=== PATIENT | female | born 1980 | race Hispanic/Latino ===

== ENCOUNTER 2017-05-20 17:59 | Emergency (ER) | payer OTHER ==
[2017-05-20 18:23] VITALS: RESP 16; TEMP 98.6; O2SAT 100
[2017-05-20] MEDS ORDERED: Magnesium Sulfate 2 gm/50 ml 2 GM/50 ML BAG IV STA (20:21)
[2017-05-20] MEDS ORDERED: Magnesium Sulfate 2 gm/50 ml 2 GM/50 ML BAG ONE (20:30)
[2017-05-20 20:33] LABS: BASO # 0.1 K/uL (0.0-0.2); BASO % 0.6 % (0.0-2.0); HEMOGLOBIN 12.9 g/dL (12.0-16.0); LYMPH # 0.8 K/uL (1.0-4.3); LYMPH % 8.2 % (20.0-40.0); MEAN CELL VOLUME 79.6 fl (81.0-99.0); MEAN CORPUSCULAR HEMOGLOBIN 26.2 pg (27.0-31.0); MEAN CORPUSCULAR HGB CONC 32.9 g/dL (33.0-37.0); MEAN PLATELET VOLUME 9.2 fl (7.2-11.7); MONO # 0.3 K/uL (0.0-0.8); MONO % 2.7 % (0.0-10.0); NEUT # 8.4 K/uL (1.8-7.0); NEUT % 88.5 % (50.0-75.0); PLATELET COUNT 263 K/uL (130-400); RBC 4.92 Mil/uL (3.80-5.20); RED CELL DISTRIBUTION WIDTH 14.2 % (11.5-14.5); WHITE BLOOD COUNT 9.5 K/uL (4.8-10.8)
[2017-05-20 20:44] LABS: ALB/GLOB RATIO 1.2 (1.0-2.1); ALBUMIN 4.8 g/dL (3.5-5.0); ALT/SGPT 30 U/L (9-52); AST/SGOT 18 U/L (14-36); BLOOD UREA NITROGEN 14 mg/dl (7-17); GFR AFRICAN-AMERICAN > 60; GFR NON-AFRICAN AMERICAN > 60
[2017-05-20 22:13] VITALS: BP 98/62; PULSE 70
--- NOTE | 2017-05-20 22:18 | ED PDOC ---
HPI: Headache Time Seen by Provider: 05/20/17 19:03 Chief Complaint (Nursing): Headache Chief Complaint (Provider): headache History Per: Patient History/Exam Limitations: no limitations Onset/Duration Of Symptoms: Days (x1 week) Current Symptoms Are (Timing): Still Present Associated Symptoms: Other (facial pain). denies: Photophobia, Blurred Vision, Nausea, Vomiting Additional Complaint(s): Nicki Arcos is a 37 year old female, with no significant past medical history, who presents to the emergency department complaining of a frontal headache and facial pain in maxillary region onset for x1 week. Patient states x1 week ago she was started on antibiotics by her PMD for clinical sinusitis. After x2 days with no improvement, patient's medication was changed to Levaquin. She followed up with ENT, Dr. Perez, who examined her and felt her sinuses did not appear significantly infected. He switched her medication concerned for Levaquin for possible adverse with regards to tendinopathy. She states that today she followed up with [facility] again and she was complaining of persistent headache, the provider there prescribed percocet and also had an outpatient CT of the sinuses, but she is unsure of the results. She presents now to the ED and denies any nausea, vomit, photophobia, sound sensitivity, fever, chills, neck pain or changes in appetite. No further medical complaints. PMD: None provided. Past Medical History Reviewed: Historical Data, Nursing Documentation, Vital Signs Vital Signs: Last Vital Signs Temp 98.6 F 05/20/17 18:20 Pulse 109 H 05/20/17 18:20 Resp 16 05/20/17 18:20 BP 116/78 05/20/17 18:20 Pulse Ox 100 05/20/17 18:20 - Medical History PMH: No Chronic Diseases - Surgical History Surgical History: No Surg Hx - Family History Family History: States: No Known Family Hx - Social History Current smoker - smoking cessation education provided: No Alcohol: Occasional Drugs: Denies - Home Medications Home Medications: Ambulatory Orders Medication Instructions Recorded Acetaminophen/Butalbital/Caf 1 - 2 tab PO Q6 PRN #20 tab 05/20/17 [Fioricet] - Allergies Allergies/Adverse Reactions: Allergies Allergy/AdvReac Type Severity Reaction Status Date / Time Penicillins Allergy RASH Verified 05/20/17 18:20 Review of Systems ROS Statement: Except As Marked, All Systems Reviewed And Found Negative Constitutional: Positive for: Other (facial pain). Negative for: Fever, Chills Eyes: Negative for: Other (photophobia) ENT: Negative for: Other (sound sensitivity) Gastrointestinal: Negative for: Nausea, Vomiting, Other (changes in appetite) Musculoskeletal: Negative for: Neck Pain Neurological: Positive for: Headache Physical Exam - Reviewed Nursing Documentation Reviewed: Yes Vital Signs Reviewed: Yes - Physical Exam Appears: Positive for: Well, Non-toxic, No Acute Distress Head Exam: Positive for: ATRAUMATIC, NORMAL INSPECTION, NORMOCEPHALIC Skin: Positive for: Normal Color, Warm, Dry Eye Exam: Positive for: Normal appearance, EOMI, PERRL Neck: Positive for: Painless ROM, Supple Cardiovascular/Chest: Positive for: Regular Rate, Rhythm. Negative for: Murmur Respiratory: Positive for: Normal Breath Sounds. Negative for: Respiratory Distress Gastrointestinal/Abdominal: Positive for: Normal Exam, Soft. Negative for: Tenderness, Guarding, Rebound Back: Positive for: Normal Inspection. Negative for: L CVA Tenderness, R CVA Tenderness, Vertebral Tenderness Extremity: Positive for: Normal ROM (upper and lower extremities). Negative for : Tenderness, Deformity, Swelling Neurologic/Psych: Positive for: Alert, Oriented (x3). Negative for: Motor/ Sensory Deficits - Laboratory Results Result Diagrams: 05/20/17 20:25 05/20/17 20:25 - ECG O2 Sat by Pulse Oximetry: 100 (RA) Pulse Ox Interpretation: Normal Medical Decision Making Medical Decision Making: Initial Impression: 37 y/o female with persistent headache. Initial Plan: --Head w/o contrast [CT] --Sinuses w/o contrast [CT] --CMP --Magnesium --Urine --Urine dipstick --CBC w/ differential --Erythrocyte sedimentation rate --Magnesium Sulfate 2 gm in 50 ml IV --Toradol 30 mg IV --Reevaluation -Patient offered imaging here, she would like it done even tho she had an outpatient CT 21:[address] FINDINGS: BRAIN: Unremarkable. No hemorrhage. No significant white matter disease. No edema. VENTRICLES: Unremarkable. No ventriculomegaly. BONES/JOINTS: Unremarkable. No acute fracture. SOFT TISSUES: Unremarkable. SINUSES: Unremarkable as visualized. No acute sinusitis. MASTOID AIR CELLS: Unremarkable as visualized. No mastoid effusion. IMPRESSION: No acute findings. 21:38 CT Sinuses FINDINGS: MAXILLARY SINUSES: Mild to moderate maxillary sinus mucosal thickening. No air-fluid levels. SPHENOID SINUSES: Unremarkable. No air-fluid levels. FRONTAL SINUSES: Unremarkable. No air-fluid levels. ETHMOID AIR CELLS: Unremarkable. No air-fluid levels. NASAL CAVITY/SEPTUM: No acute findings. BONES/JOINTS: No acute fracture. SOFT TISSUES: Unremarkable. IMPRESSION: Mild to moderate maxillary sinus mucosal thickening. 10:15 -Patient reports mild improvement of symptoms, resting and eating comfortable. Patient is stable for discharge and advised to follow up with PMD. Return precautions were provided. Diagnosis sinusitis, headache. Scribe Attestation: Documented by Anam Aviles, acting as a scribe for Son Alvarez MD Provider Scribe Attestation: All medical record entries made by the Scribe were at my direction and personally dictated by me. I have reviewed the chart and agree that the record accurately reflects my personal performance of the history, physical exam, medical decision making, and the department course for this patient. I have also personally directed, reviewed, and agree with the discharge instructions and disposition. Disposition - Clinical Impression Clinical Impression: Sinusitis - Disposition Disposition: Routine/Home Disposition Time: 10:15 Condition: STABLE Prescriptions: Acetaminophen/Butalbital/Caf [Fioricet] 1 - 2 tab PO Q6 PRN #20 tab PRN Reason: Headache Instructions: Sinusitis in Adults, Sinus Headache (DC) Forms: [employer] ([place])
[2017-05-20 22:43] LABS: BANDS 3 % (0-2); LYMPHOCYTE 10 % (20-50); MONOCYTE 5 % (0-10); NEUTROPHIL 82 % (42-75); PLATELET ESTIMATE NORMAL (NORMAL); TOTAL CELLS COUNTED 100
[2017-05-20 22:44] LABS: ANISOCYTOSIS SLIGHT; HYPOCHROMIC SLIGHT; MICROCYTOSIS SLIGHT; POIKILOCYTOSIS SLIGHT; TEARDROP CELLS SLIGHT
--- NOTE | 2017-05-21 07:15 | CT ---
PROCEDURE: CT HEAD WITHOUT CONTRAST. HISTORY: headache COMPARISON: None available. TECHNIQUE: Axial computed tomography images were obtained through the head/brain without intravenous contrast. Radiation dose: Total exam DLP = 684 mGy-cm. This CT exam was performed using one or more of the following dose reduction techniques: Automated exposure control, adjustment of the mA and/or kV according to patient size, and/or use of iterative reconstruction technique. FINDINGS: HEMORRHAGE: No intracranial hemorrhage. BRAIN: No mass effect or edema. No atrophy or chronic microvascular ischemic changes. VENTRICLES: Unremarkable. No hydrocephalus. CALVARIUM: Unremarkable. PARANASAL SINUSES: Unremarkable as visualized. No significant inflammatory changes. MASTOID AIR CELLS: Unremarkable as visualized. No inflammatory changes. OTHER FINDINGS: None. IMPRESSION: No acute intracranial abnormality. If symptoms persists, consider further evaluation with MRI. These findings were preliminarily reported at 9:21 p.m. on 05/20/[address]Shahin Diego from [facility].
--- NOTE | 2017-05-21 07:24 | CT ---
CT sinuses History: Sinusitis. Comparison: None available. Technique: Multiple contiguous axial images were performed through the paranasal sinuses without the use intravenous contrast. Subsequently, sagittal and coronal reformatted images were obtained. This CT exam was performed using one or more of the following dose reduction techniques: Automated exposure control, adjustment of the mA and/or kV according to patient size, and/or use of iterative reconstruction technique. Findings: Moderate diffuse circumferential thickening and hypertrophy of the left maxillary sinus. Moderate mucosal thickening and hypertrophy of the right maxillary sinus most prominent at its inferior aspect. At the inferior aspect of the right maxillary sinus, there is focal mucosal thickening measuring up to 1.4 centimeters which may represent a mucosal retention cyst and or polyp. This may be better evaluated with MRI if clinically indicated. Sphenoid sinus is preserved. The ethmoid air cells are preserved. Frontal sinus is preserved. Bilateral mastoid air cells are preserved. Moderate mucosal thickening and hypertrophy of the middle and inferior nasal turbinates ; left greater than right. Rightward nasal septal deviation. Impression: Sinus mucosal disease as above. These findings were preliminarily reported at 9:38 p.m. on 05/20/[address] Lauren Diego from [facility].
== END 2017-05-20 22:13 | disposition home or self-care (01) ==
LOC: H.ER 17:59
DX: J32.9 Chronic sinusitis, unspecified (principal); Z88.0 Allergy status to penicillin
CPT/HCPCS: 70450; 70486; 80053; 81025; 83735; 85025; 85651; 96374; 96375; 99285; J1885